=== PATIENT | female | born 1975 | race Caucasian/White ===

== ENCOUNTER 2023-10-07 16:12 | Emergency (ER) | payer OTHER ==
[~2023-10-07] VITALS: Ht 160 cm; Wt 75.0 kg
[2023-10-07 16:30] VITALS: BP 138/96
[2023-10-07 16:45] VITALS: BP 141/89
[2023-10-07 17:00] VITALS: BP 144/88
[2023-10-07 17:15] VITALS: BP 149/98
[2023-10-07] MEDS ORDERED: METHOCARBAMOL500 MG PO (22:23)
[2023-10-07] MEDS ORDERED: IBUPROFEN600 MG PO (22:23)
[2023-10-07 22:42] VITALS: BP 149/98
== END 2023-10-07 22:42 | disposition home or self-care (01) | DRG 563 ==
LOC: ED 16:12
DX: S29.012A Strain of muscle and tendon of back wall of thorax, initial encounter (principal); V44.5XXA Car driver injured in collision with heavy transport vehicle or bus in traffic accident, initial encounter